=== PATIENT | female | born 1955 | race Two or more races ===

== ENCOUNTER → 2016-10-03 | Outpatient (CLI) | payer MEDICAID ==
[2016-10-03 17:57] LABS: HEMOGLOBIN 14.4 g/dL (12.2-16.2); LYMPH # 1.9 K/mm3 (0.7-4.5)
[2016-10-03 18:20] LABS: BUN 8 mg/dL (7-18)
[2016-10-03 18:23] LABS: GFR (ESTIMATED) 86 ML/MIN (59-)
[2016-10-05 08:47] LABS: Vitamin D, 25-Hydroxy 20.2 ng/mL (30.0-100.0)
[2016-10-05 12:36] LABS: HBsAg Screen Negative (Negative); Hep A Ab, IgM Negative (Negative); Hep B Core Ab, IgM Negative (Negative); Hep C Virus Ab <0.1 (0.0-0.9)
== END ==
LOC: LAB 15:36
PROVIDERS: Emergency Medicine
DX: R53.83 Other fatigue (principal); N39.0 Urinary tract infection, site not specified

== ENCOUNTER → 2016-11-14 | Outpatient (CLI) | payer MEDICAID ==
[2016-11-14 22:12] LABS: AMPHETAMINES/METAMPHETAMINES NEGATIVE ng/mL (<1000)
[2016-11-15 08:43] LABS: FSH 38.8 mIU/mL (.); LH 25.9 mIU/mL (.); Progesterone <0.1 ng/mL (.)
[2016-11-17 12:36] LABS: Estrogens, Total 42 pg/mL (.)
== END ==
LOC: LAB 13:36
PROVIDERS: Emergency Medicine
DX: R53.83 Other fatigue (principal)

== ENCOUNTER → 2016-11-21 | Outpatient (CLI) | payer MEDICAID ==
--- NOTE | 2016-11-21 11:25 | RADIOLOGY REPORT PS360 ---
BONE DENSITOMETRY(HIP:LT SPINE HISTORY: POST MENOPAUSAL ORDERING PHYSICIAN: Douglas Piper MD PATIENT AGE: 61 years COMPARISON: None FINDINGS: The BMD measured at the left femoral neck is 0.701 g/cm squared with a T score of -2.4. This is considered Osteopenic according to the World Health Organization criteria. Fracture risk is Moderate. Treatment is advised. IMPRESSION: Osteopenia. Recommend follow-up exam November 2018
--- NOTE | 2016-11-22 12:19 | RADIOLOGY REPORT PS360 ---
DIG MAMM-SCREEN MARISA W/CAD CAD Screening COMPARISON: None, patient had mammograms more than 10 years ago somewhere in [place] INDICATION: There is a history of breast cancer patient maternal aunt. TECHNIQUE: Standard CC and MLO images were obtained. R2 CAD reviewed. FINDINGS: Moderate fibroglandular densities are seen in the central portions of both breast and the findings are bilateral and symmetrical. There is no suspicious lesion and there are no suspicious microcalcifications. There is a tiny nodular density near the axillary tail the right breast likely a small intramammary node or fibroadenoma but since there are no previous mammograms for comparison suggest patient return for 6 month follow-up mammogram right breast There are fatty replaced nodes in both axilla. IMPRESSION: Fibrofatty parenchyma with tiny and likely benign-appearing nodular density right breast and recommend 6 month follow-up mammogram right breast BI-RADS CATEGORY: 3_Probably Benign-Short Term F/U RECOMMENDED FOLLOWUP: 6M 6MONTH FOLLOW-UP (A letter has been sent to the patient regarding results of the study.)
== END ==
LOC: RAD 09:00
DX: Z12.31 Encounter for screening mammogram for malignant neoplasm of breast (principal); Z78.0 Asymptomatic menopausal state; Z13.820 Encounter for screening for osteoporosis

== ENCOUNTER 2017-01-23 15:05 | Emergency (ER) | payer OTHER, MEDICAID ==
[~2017-01-23] VITALS: Ht 162.6 cm; Wt 63.5 kg
--- OUTSIDE RECORDS SUMMARY | 2017-01-23 15:17 | External Medical Summary Rpt | CCD ---
Author Author , SHIV CHANEY Address Unknown Phone [email or web address] Integrity Care Team Providers Care Bump Grader Operator Name Role Phone [facility] Unavailable Unavailable PRACTICE, [facility], [facility] Unavailable Unavailable [facility], [facility], Unavailable Unavailable [facility] Unavailable Un[facility] Unavailable [facility]available [facility], [facility] Unavailable Unavailable ASSIST, [facility] [facility] [employer] [facility] Unavailable Unavailable [facility], [facility] Purpose Continuity of Care Document - 10-17-2014 through 2016 Problems Code Diagnosis DOS Provider Status [id number] OTH SPEC 11-21-2016 [place] D/O BONE MEDICAL DENSITY IMAGING ASS STRUCTURE LT THIGH R928 OTH ABNORM 11-21-2016 [place] & MEDICAL INCONCLUSIV IMAGING ASS E FIND ON DX IMAG BREAST Z1231 ENCOUNTER 11-21-2016 [place] SCREENING MEDICAL MAMMO MALIG IMAGING ASS NEOPLASM BREAST M22777 ENCOUNTER 11-21-2016 [facility] SCREENING INC FOR OSTEOPOROSI S Z780 ASYMPTOMATI 11-21-2016 [place] C MEDICAL MENOPAUSAL IMAGING ASS STATE Z803 FAMILY 11-21-2016 [place] HISTORY OF MEDICAL MALIGNANT IMAGING ASS NEOPLASM OF BREAST R5383 OTHER 11-14-2016 [facility] H5213 MYOPIA 10-17-2016 [facility] L86273 UNSPECIFIED 10-17-2016 [facility] OF ASTIGMATISM [facility] BILATERAL H524 PRESBYOPIA 10-17-2016 [facility] N390 URINARY 10-03-2016 [facility] INFECTION INC SITE NOT SPECIFIED Z0100 ENCOUNTER 09-13-2016 [place] EXAM EYES & VISION W/O ABNORMAL FIND K3189 OTHER 03-09-2016 DISEASES OF [facility]OSPITALS AND DUODENUM M1288 OTHER 03-09-[address] [facility] SPECIFIC PHYSICIANS ARTHROPATHI ASSIST ES NEC OTHER SPEC SITE [id number] SPONDYLOSIS 03-09-2016 [facility] MYELOPATH/R HOSPITALS ADICULOPATH Y LUMB RGN H99441 SPONDYLOSIS 03-09-2016 [facility] MYELOPATH/[facility] HOSPITALS ADICULPATHY LS RGN M545 LOW BACK 03-09-2016 [facility] R300 DYSURIA 02-23-2016 [facility] M549 DORSALGIA 01-28-2016 [place] UNSPECIFIED [facility] PRACTICE M5432 SCIATICA 01-05-2016 [place] LEFT SIDE [employer] Mix [employer], [employer] Z8719 PERSONAL 01-05-2016 [place] HISTORY [employer], [employer] OTHER DISEASES DIGESTIVE SYSTEM R109 UNSPECIFIED 11-11-2015 [place] ABDOMINAL FAMILY PAIN PRACTICE [id number] STRAIN 08-28-2015 [facility] MUSCLE N EMERGENCY FASCIA & PHYS TENDON LOW BACK INITIAL G09NYCM EXPOSURE TO 08-28-2015 [facility] OTHER N EMERGENCY SPECIFIED PHYS FACTORS INITIAL ENC Y9389 ACTIVITY 08-28-2015 [facility] OTHER N EMERGENCY SPECIFIED PHYS J209 ACUTE 12-30-2014 [place] BRONCHITIS [facility] UNSPECIFIED PRACTICE 5990 URINARY 10-17-2014 [place] TRACT FAMILY INFECTION PRACTICE SITE NOT SPECIFIED Medications Na ND Rx Da Fi Fi Am Da Di Ph RX Ph St me C No te ll ll ou ys ag ar # ys at rm s nt no ma ic us Or Da si cy ia de te s n re d BU 00 10 12 60 30 00 MS Ac HI 59 -3 -0 .0 00 L- ti OP 13 1- 1- 00 07 MA ve IO 54 20 20 51 RT N 10 17 17 85 HC 5 45 PH L AR SR MA CY 15 0 #5 MG 91 TA BL ET 64 10 11 4. 28 00 [place] Ac T 38 -2 -2 00 00 L- ti D2 00 5- 4- 0 07 MA ve 73 20 20 50 RT 1. 70 17 17 58 25 6 71 PH AR MG MA CY (5 0, #5 00 91 0 UN IT ) AL 69 10 11 4. 28 00 WA Ac EN 09 -0 -1 00 00 L- ti DR 70 9- 0- 0 07 MA ve ON 22 20 20 51 RT AT 41 17 17 42 E 6 66 PH SO AR DI MA UM CY 70 #5 91 MG TA B CL 16 09 10 60 30 00 WA Ac ON 72 -1 -2 .0 00 L- ti AZ 90 8- 0- 00 04 MA ve EP 13 20 20 53 RT AM 61 17 17 16 6 05 PH 0. AR 5 MA MG CY TA #5 BL 91 ET BU 60 09 10 60 30 00 [facility] HI 50 -1 -2 .0 00 L- ti OP 50 8- 0- 00 07 MA ve IO 15 20 20 50 RT N 80 17 17 38 HC 1 08 PH L AR 75 MA CY MG #5 TA 91 BL ET 64 10 10 4. 28 00 [facility] T 38 -0 -2 00 00 L- ti D2 00 1- 0- 0 07 MA ve 73 20 20 50 RT 1. 70 17 17 58 25 6 71 PH AR MG MA CY (5 0, #5 00 91 0 UN IT ) ES 68 09 10 30 30 00 [facility] CI 64 -2 -2 .0 00 L- ti TA 50 5- 0- 00 07 MA ve LO 51 20 20 51 RT HI 95 17 17 18 AM 4 16 PH AR 10 MA CY MG #5 TA 91 BL ET 64 08 09 4. 28 00 [facility] T 38 -2 -2 00 00 L- ti D2 00 5- 2- 0 07 MA ve 73 20 20 50 RT 1. 70 17 17 58 25 6 71 PH AR MG MA CY (5 0, #5 00 91 0 UN IT ) ME 00 01 02 60 15 00 [facility] TH 14 -1 -1 .0 00 L- ti OC 31 9- 7- 00 07 MA ve AR 29 20 20 46 RT BA 20 17 17 54 MO 1 27 PH L AR 75 MA 0 CY MG #5 TA 91 BL ET FONTANA 65 01 01 20 10 00 [facility] LF 86 -0 -2 .0 00 L- ti AM 20 3- 7- 00 07 MA ve ET 42 20 20 46 RT HO 00 17 17 24 XA 5 07 PH ZO AR LE MA -T CY MP #5 DS 91 TA BL ET PH 51 01 01 15 5 00 [facility] EN 29 -0 -2 .0 00 L- ti AZ 30 3- 7- 00 07 MA ve OP 81 20 20 46 RT YR 10 17 17 24 ID 1 21 PH IN AR E MA 20 CY 0 MG #5 91 TA B VE 00 12 01 7. 7 00 [facility] NL 09 -2 -2 00 00 L- ti AF 37 2- 0- 0 07 MA ve AX 38 20 20 46 RT IN 45 16 17 01 E 6 59 PH HC AR L MA ER CY 37 #5 .5 91 MG CA P Results Labs Lab Lab Date Result Refere Interp Status Commen Order Detail nces retati t Range on Drugs identified in Urine by Screen method (11-14-2016 11:45) Ampheta NEGATIV <1000 complet mine 017 E ed [Presen 11:45 ce] in Urine by Screen method 11-Hydr NEGATIV <50 complet oxy 017 E ed delta-9 11:45 tetrahy drocann abinol [Presen ce] in Unspeci fied specime n Hemoglobin A1c in Blood (10-03-2016 10:30) Hemoglo 5.1 % 0.0% Normal complet bin A1c 017 - ed in 10:30 7.0% Blood Encounters Encounter Start End Date Code Location Performer Type Date [facility]
--- OUTSIDE RECORDS SUMMARY | 2017-01-23 15:17 | External Medical Summary Rpt | CCD ---
Author Author , SHIV CHANEY Address Unknown Phone [email or web address] Visual Effects Care Team Providers Care Formstone Fitter Name Role Phone [facility] Unavailable Unavailable PRACTICE, [facility] Un[facility] Unavailable INC, [facility] Unavailable Unavailable IM[facility]ING [facility], [facility], Unavailable Unavailable [facility] Unavailable Un[facility] Unavailable Unavailable HOSPITALS, [facility] Unavailable Unavailable ASSIST, [facility] [employer] [facility] Unavailable Unavailable [facility], [facility] Purpose Continuity of Care Document - 10-17-2014 through 2016 Problems Code Diagnosis DOS Provider Status [id number] OTH SPEC 11-21-2016 [place] D/O BONE MEDICAL DENSITY IMAGING ASS STRUCTURE LT THIGH R928 OTH ABNORM 11-21-2016 [place] & MEDICAL INCONCLUSIV IMAGING ASS E FIND ON DX IMAG BREAST Z1231 ENCOUNTER 11-21-2016 [place] SCREENING MEDICAL MAMMO MALIG IMAGING ASS NEOPLASM BREAST U07433 ENCOUNTER 11-21-2016 [facility] SCREENING INC FOR OSTEOPOROSI S Z780 ASYMPTOMATI 11-21-2016 [place] C MEDICAL MENOPAUSAL IMAGING ASS STATE Z803 FAMILY 11-21-2016 [place] HISTORY OF MEDICAL MALIGNANT IMAGING ASS NEOPLASM OF BREAST R5383 OTHER 11-14-2016 [facility] H5213 MYOPIA 10-17-2016 [facility] P25423 UNSPECIFIED 10-17-2016 [facility] ASTIGMATISM [facility] BILATERAL H524 PRESBYOPIA 10-17-2016 [facility] N390 URINARY 10-03-2016 [facility] INFECTION INC SITE NOT SPECIFIED Z0100 ENCOUNTER 09-13-2016 [facility] EXAM EYES & VISION W/O ABNORMAL FIND K3189 OTHER 03-09-2016 DISEASES OF [facility]OSPIT[facility] AND DUODENUM M1288 OTHER 03-09-2016 [facility] SPECIFIC PHYSICIANS ARTHROPATHI ASSIST ES NEC OTHER SPEC SITE F74765 SPONDYLOSIS 03-09-2016 [facility] MYELOPATH/[facility] HOSPITALS ADICULOPATH Y LUMB RGN P06830 SPONDYLOSIS 03-09-2016 [facility] MYELOPATH[facility] HOSPITALS ADICULPATHY LS RGN M545 LOW BACK 03-09-2016 [facility] R300 DYSURIA 02-23-2016 [facility] M549 DORSALGIA 01-28-2016 [place] UNSPECIFIED [facility] M5432 SCIATICA 01-05-2016 [place] LEFT SIDE [employer], Queralt Z8719 PERSONAL 01-05-2016 [place] HISTORY [employer], Queralt OTHER DISEASES DIGESTIVE SYSTEM R109 UNSPECIFIED 11-11-2015 [place] ABDOMINAL FAMILY PAIN PRACTICE L54743Q STRAIN 08-28-2015 [facility] MUSCLE N EMERGENCY FASCIA & PHYS TENDON LOW BACK INITIAL [id number] EXPOSURE TO 08-28-2015 [facility] OTHER N EMERGENCY SPECIFIED PHYS FACTORS INITIAL ENC Y9389 ACTIVITY 08-28-2015 [facility] OTHER N EMERGENCY SPECIFIED PHYS J209 ACUTE 12-30-2014 [place] BRONCHITIS [facility] UNSPECIFIED PRACTICE 5990 URINARY 10-17-2014 [place] TRACT FAMILY INFECTION PRACTICE SITE NOT SPECIFIED Medications Na ND Rx Da Fi Fi Am Da Di Ph RX Ph St me C No te ll ll ou ys ag ar # ys at rm s nt no ma ic us Or Da si cy ia de te s n re d BU 00 10 12 60 30 00 [place] Ac UT 59 -3 -0 .0 00 L- ti [...] BU 60 09 10 60 30 00 [facility] UT 50 -1 -2 .0 00 L- ti OP 50 8- 0- 00 07 MA ve IO 15 20 20 50 RT N 80 17 17 38 HC 1 08 PH L AR 75 MA CY MG #5 TA 91 BL ET 64 10 10 4. 28 00 [facility] T 38 -0 -2 00 00 L- ti D2 00 1- 0- 0 07 MA ve 73 20 20 50 RT 1. 70 17 17 58 25 6 71 PH AR MG MA CY (5 0, #5 00 91 0 UN IT ) ES 68 09 10 30 30 00 [facility] CI 64 -2 -2 .0 00 L- ti TA 50 5- 0- 00 07 MA ve LO 51 20 20 51 RT UT 95 17 17 18 AM 4 16 PH AR 10 MA CY MG #5 TA 91 BL ET 64 08 09 4. 28 00 [facility] T 38 -2 -2 00 00 L- ti D2 00 5- 2- 0 07 MA ve 73 20 20 50 RT 1. 70 17 17 58 25 6 71 PH AR MG MA CY (5 0, #5 00 91 0 UN IT ) ME 00 01 02 60 15 00 [facility] TH 14 -1 -1 .0 00 L- ti OC 31 9- 7- 00 07 MA ve AR 29 20 20 46 RT BA 20 17 17 54 MO 1 27 PH L AR 75 MA 0 CY MG #5 TA 91 BL ET FONTANA 65 01 01 20 10 00 [facility] LF 86 -0 -2 .0 00 L- ti AM 20 3- 7- 00 07 MA ve ET 42 20 20 46 RT HO 00 17 17 24 XA 5 07 PH ZO AR LE MA -T CY MP #5 DS 91 TA BL ET PH 51 01 01 15 5 00 [facility] EN 29 -0 -2 .0 00 L- ti AZ 30 3- 7- 00 07 MA ve OP 81 20 20 46 RT YR 10 17 17 24 ID 1 21 PH IN AR E MA 20 CY 0 MG #5 91 TA B VE 00 12 01 7. 7 00 [facility] NL 09 -2 -2 00 00 L- [...] End Date Code Location Performer Type Date [facility] 7 [facility]
--- OUTSIDE RECORDS SUMMARY | 2017-01-23 15:18 | External Medical Summary Rpt ---
Author Author [facility]IV Weems, JOHNERNESTINA Production Organization [facility] [employer] Address Unknown Phone Unavailable Results Drugs identified in Urine by Screen method Observa Value Referen Units Interpr Notes Date tion ce etation Range Positive urine drug screen samples are stored for 7 days. Contact the Lab if confirmation of positives is needed. Ampheta NEGATIV <1000 ng/mL No No Sep 25 mine E informa informa 2017 [Presen tion in tion in 11:45 ce] in source source AM Urine data data by Screen method Barbitura <200 ng/mL No No Sep 25 sonia informati informati 2017 [Mass/vol on in on in 11:45 AM ume] in source source Urine by data data Screen method Benzodiaz 200 ng/mL ng/mL No No Sep 25 epines informati informati 2017 [Mass/vol on in on in 11:45 AM ume] in source source Serum or data data Plasma by Screen method Cocaine <300 ng/g No No Sep 25 [Mass/vol informati informati 2017 ume] in on in on in 11:45 AM Unspecifi source source ed data data specimen Methadone <300 ng/mL No No Sep 25 informati informati 2017 [Mass/vol on in on in 11:45 AM ume] in source source Unspecifi data data ed specimen Opiates <300 ng/mL No No Sep 25 [Mass/vol informati informati 2017 ume] in on in on in 11:45 AM Unspecifi source source ed data data specimen Phencycli <25 ng/mL No No Sep 25 dine informati informati 2017 [Mass/vol on in on in 11:45 AM ume] in source source Unspecifi data data ed specimen 11-Hydr NEGATIV <50 ng/mL No No Sep 25 oxy E informa informa 2017 delta-9 tion in tion in 11:45 source source AM tetrahy data data drocann abinol [Presen ce] in Unspeci fied specime n Hemoglobin A1c in Blood Observa Value Referen Units Interpr Notes Date tion ce etation Range Hemoglo 5.1 0.0 - % Normal < 6% Oct 03 bin A1c 7.0 NON-SHONA 2017 in BETIC 10:30 Blood LEVEL< AM 7% CONTROL LED DIABETI C LEVEL> 8% POORLY CONTROL LED DIABETI C LEVEL Comprehensive metabolic 2000 panel in Serum or Plasma Observa Value Referen Units Interpr Notes Date tion ce etation Range Albumin/G 1.1 - 1.8 No Normal No Oct 03 lobulin informati informati 2016 [Mass on in on in 10:30 AM ratio] in source source Serum or data data Plasma Albumin 3.4 - 5.0 gm/dL Normal No Oct 03 [Mass/vol informati 2016 ume] in on in 10:30 AM Serum or source Plasma data Alkaline 46 - 116 U/L Normal No Oct 03 phosphata informati 2016 se on in 10:30 AM [Enzymati source c data activity/ volume] in Serum or Plasma Bilirubin 0.2 - 1.0 mg/dL Normal No Oct 03 .total informati 2016 [Mass/vol on in 10:30 AM ume] in source Serum or data Plasma Urea 7 - 18 mg/dL Normal No Oct 03 nitrogen informati 2016 [Mass/vol on in 10:30 AM ume] in source Serum or data Plasma Calcium 8.5 - mg/dL Normal No Oct 03 [Mass/vol 10.1 informati 2016 ume] in on in 10:30 AM Serum or source Plasma data Chloride 98 - 107 mmoL/L Normal No Oct 03 [Moles/vo informati 2016 lume] in on in 10:30 AM Serum or source Plasma data Carbon 21.0 - mmoL/L Normal No Oct 03 dioxide, 32.0 informati 2016 total on in 10:30 AM [Moles/vo source lume] in data Serum or Plasma Creatinin 0.55 - mg/dL Normal No Oct 03 e 1.02 informati 2016 [Mass/vol on in 10:30 AM ume] in source Serum or data Plasma Estimated 59- ML/MIN No REFERENCE Oct 03 informati RANGE: 2017 glomerula on in >60 10:30 AM r source ML/MIN/1. filtratio data 73 SQUARE n rate METERSIf (GF this patient is -A merican, then multiply theresult by 1.210. Globulin 1.3 - 3.2 gm/dL Normal No Sep 14 [Mass/vol informati 2016 ume] in on in 10:30 AM Serum source data Glucose 74 - 106 mg/dL Normal No Sep 14 [Mass/vol informati 2016 ume] in on in 10:30 AM Serum or source Plasma data Potassium 3.5 - 5.1 mmoL/L Normal No Oct 03 inform2016 [Moles/vo on in 10:30 AM lume] in source Serum or data Plasma Sodium 136 - 145 mmoL/L Normal No Oct 03 [Moles/vo informati 2016 lume] in on in 10:30 AM Serum or source Plasma data Aspartate 15 - 37 U/L Normal No Oct [id number] aminotran on in 10:30 AM sferase source [Enzymati data c activity/ volume] in Serum or Plasma Alanine 12 - 78 U/L Normal No Oct 03 aminotran 2016 sferase on in 10:30 AM [Enzymati source c data activity/ volume] in Serum or Plasma Protein 6.4 - 8.2 gm/dL Normal No Oct 03 [Mass/vol informati 2016 ume] in on in 10:30 AM Serum or source Plasma data Lipid 1996 panel in Serum or Plasma Observa Value Referen Units Interpr Notes Date tion ce etation Range Cholester < 200 mg/dL No No Sep 14 ol informati 2016 [Moles/vo on in on in 10:30 AM lume] in source source Unspecifi data data ed specimen Cholester 40 - 60 MG/DL High No Oct 03 ol in HDL 2016 on in 10:30 AM [Mass/vol source ume] in data Serum or Plasma Cholester 0 - 130 mg/dL Normal No Oct 03 ol in LDL 2016 on in 10:30 AM [Mass/vol source ume] in data Serum or Plasma by calculati on Triglycer 30 - 200 mg/dL Normal No Oct 03 chirag 2016 [Moles/vo on in 10:30 AM lume] in source Serum or data Plasma Cholester 0 - 40 No Normal No Sep 14 ol in informati inform 2017 VLDL on in on in 10:30 AM [Mass/vol source source ume] in data data Serum or Plasma Thyroxine (T4) [Mass/volume] in Serum or Plasma Observa Value Referen Units Interpr Notes Date tion ce etation Range Thyroxine 4.7 - ug/dl Normal No Sep 14 (T4) 13.3 2016 [Mass/vol on in 10:30 AM ume] in source Serum or data Plasma Thyrotropin [Units/volume] in Serum or Plasma Observa Value Referen Units Interpr Notes Date ti ce etation Range Thyrotrop 0.358 - uIU/ml Normal No Sep 14 in 3.740 inform2016 [Units/vo on in 10:30 AM lume] in source Serum or data Plasma CBC W Auto Differential panel in Blood Observa Value Referen Units Interpr Notes Date ti ce etation Range Basophils 0 - 0.2 K/MM3 Normal No Sep 14 2016 [#/volume on in 10:30 AM ] in source Blood by data Automated count Basophils 0.1 - 2.0 % Normal No Sep 14 /100 inform 2017 leukocyte on in 10:30 AM s in source Blood by data Automated count Eosinophi 0.0 - 0.4 K/mm3 Normal No Sep 14 ls 2016 [#/volume on in 10:30 AM ] in source Blood by data Automated count Eosinophi 0.1 - % Normal No Sep 14 ls/100 12.0 inform2016 leukocyte on in 10:30 AM s in source Blood by data Automated count Granulocy 1.8 - 7.8 K/mm3 Normal No Sep 14 sonia 2016 [#/volume on in 10:30 AM ] in source Blood by data Automated count Granulocy 37.0 - % Normal No Sep 14 sonia/100 80.0 2016 leukocyte on in 10:30 AM s in source Blood by data Automated count Hematocri 37.0 - % Normal No Oct 03 t [Volume 47.0 ati 2016 on in 10:30 AM Fraction] source of Blood data Hemoglobi 12.2 - g/dL Normal No Sep 14 n 16.2 2016 [Mass/vol on in 10:30 AM ume] in source Blood data Lymphocyt 0.7 - 4.5 K/mm3 Normal No Sep 14 es 2016 [#/volume on in 10:30 AM ] in source Unspecifi data ed specimen by Automated count Lymphocyt 10 - 50.0 % Normal No Sep 14 es 2016 [#/volume on in 10:30 AM ] in source Unspecifi data ed specimen by Automated count Erythrocy 27 - 31.2 pg High No Oct 03 te mean 2016 corpuscul on in 10:30 AM ar source hemoglobi data n [Entitic mass] Erythrocy 31.8 - g/dl Normal Oct 03 te mean 35.4 2016 corpuscul on in 10:30 AM ar source hemoglobi data n concentra tion [Mass/vol ume] by Automated count Erythrocy 82.2 - fl High No Oct 03 te mean 97.8 2016 corpuscul on in 10:30 AM ar volume source [Entitic data volume] by Automated count Monocytes 0.1 - 1.0 K/mm3 Normal No Oct 03 inform2016 [#/volume on in 10:30 AM ] in source Blood by data Automated count Monocytes 1.7 - 9.3 % Normal No Oct 03 /100 2016 leukocyte on in 10:30 AM s in source Blood by data Automated count Platelet 7.4 - fl Normal Oct 03 mean 10.4 inform2016 volume on in 10:30 AM [Entitic source volume] data in Blood by Automated count Platelets 142 - 424 K/mm3 Normal No Oct [id number] [#/volume on in 10:30 AM ] in source Blood data Erythrocy 4.2 - 5.4 M/mm3 Normal No Oct 03 sonia inform2016 [#/volume on in 10:30 AM ] in source Amniotic data fluid Erythrocy 11.5 - % Normal Oct 03 te 17.5 2016 distribut on in 10:30 AM ion width source [Entitic data volume] by Automated count Leukocyte 4.8 - K/MM3 Normal No Oct 03 s 10.8 informati 2016 [#/volume on in 10:30 AM ] in source Blood data
--- OUTSIDE RECORDS SUMMARY | 2017-01-23 15:18 | External Medical Summary Rpt | CCD ---
Author Author [facility] Organization [facility] Address Unknown Phone Unavailable Purpose Continuity of Care Document - through 2016
--- OUTSIDE RECORDS SUMMARY | 2017-01-23 15:18 | External Medical Summary Rpt | CCD ---
Demographics Preferred Language Indonesian Marital Status Unknown Mandaeism Affiliation Unknown Race Unknown Ethnic Group Unknown Author Author , SHIV CHANEY Address Unknown Phone Immunization No patient found.
--- OUTSIDE RECORDS SUMMARY | 2017-01-23 15:18 | External Medical Summary Rpt | CCD ---
Demographics Preferred Language [place] Island[place] Marital Status Unknown Synagogue Affiliation Unknown Race Unknown Ethnic Group Unknown Author Author , SHIV CHANEY Address Unknown Phone Immunization No patient found.
--- NOTE | 2017-01-23 16:09 | RADIOLOGY REPORT PS360 ---
WRIST-3 VIEWS-RT HISTORY: Pain following injury FALL ORDERING PHYSICIAN: LILIANE DALTON APRN PATIENT AGE: 61 years COMPARISON: None FINDINGS: No fracture or dislocation. No lytic or blastic change. There is normal mineralization.. The joint spaces are well-preserved. No significant degenerative/arthritic changes. No erosive changes evident.. IMPRESSION: Negative wrist
--- NOTE | 2017-01-23 16:29 | RADIOLOGY REPORT PS360 ---
[id number] VIEWS HISTORY: Posttraumatic pain FALL ORDERING PHYSICIAN: LILIANE DALTON APRN PATIENT AGE: 61 years COMPARISON: None FINDINGS: No fracture or dislocation. No lytic or blastic change. There is normal mineralization. The joint spaces are well-preserved. No significant degenerative/arthritic changes. No erosive changes evident. IMPRESSION: Negative, no acute finding
[2017-01-23] MEDS ORDERED: BUPROPION HYDR150 M1 PO (16:39)
[2017-01-23] MEDS ORDERED: VITAMIN D50000 I1 PO (16:40)
[2017-01-23] MEDS ORDERED: ALENDRONATE SOD70 M1 PO (16:40)
[2017-01-23] MEDS ORDERED: ESCITALOPRAM10 M1 PO (16:41)
--- NOTE | 2017-01-23 17:06 | [facility]gent Treatment Center Report ---
History of Present Issue Date/Time Seen by Provider 01/23/17 1701 Visit Reason Pt arrived:Walked Presenting Problem:PT WAS AT WORK AND TRIPPED AND FELL OVER A MAT. C/O RIGHT SHOULDER/WRIST PAIN Location if Accident: Onset of symptoms date/time:/ or onset unknown for:MEDICAL HX UNKNOWN Have you (or family members/close friends) recently traveled outside the [place]? N If Yes, where/when: Have you had exposure to infectious disease within the past month? TB? Other? Specify: rt handed, c/o rt shoulder and wrist pain, tripped fell at work today around 11am. Tried catching self w/ right hand. Mild pain rt lateral shoulder but severe rt wrist. Tried returning to work "and working through it but pain only got worse". Unchanged w/ tylenol. Hasn't taken or tried anything else. "I came straight here" Source patient ALLERGIES Coded Allergies: Penicillins (01/23/17) Home Medications Reported Medications Bupropion Hcl (Bupropion HCl Sr) 150 MG PO BID #60 Alendronate Sodium 70 MG PO WEEKLY #4 ERGOCALCIFEROL (VITAMIN D2) (Vitamin D2) 50,000 IUNITS PO DAILY #4 Escitalopram Oxalate 10 MG PO DAILY #30 History Medical History General CAD? No Angina: No MA: No Hypertension? No Hyperlipidemia? No CHF? No DVT? No PE? No COPD? No Asthma? No Anemia? No GERD? No Gastric ulcers? No GI Bleed? No Hernia? No Thyroid Problems? No Hypothyroidism? No CVA? No Seizures? No Diabetes? No Renal Insuffiency? No UTI? No Stones? No BPH? No GB Disease: No Nephritic Syndrome? No Asplenia? No Hepatitis? No Sickle Cell Disease? No Arthritis? No Migraines? No Cataracts? No Glaucoma? No MRSA? No HIV? No TB? No Anxiety? Yes Depression? Yes Cancer? No More? Yes Additional hx: OSTEOPOROSIS Immunization HX DT/Tetanus Unknown Surgical Hx Previous Surgery?N Social History Smoking Hx Smoker: Current Every Day Smoker Tobacco: Yes Type Cigarettes Packs/day 1 1/2 - 2 Packs Alcohol Alcohol: No Review of Systems All Other Systems Reviewed and Negative (as appropriate for CC) Musculoskeletal see HPI, denies other (head injury, pain elsewhere) Skin denies change in color, denies lesions, denies lumps Psychiatric/Neurological denies numbness, denies tingling Physical Exam Vital Signs Vital Signs Date Time Temp Pulse Resp B/P Pulse O2 O2 Flow FiO2 Ox Delivery Rate 01/23 1804 98.1 59 18 134/68 98 01/23 1739 18 01/23 1637 98.1 59 16 134/68 98 01/23 1509 98.1 59 16 134/68 98 General Appearance mild distress (guarding rt UE) Respiratory Status No: respiratory distress. Cardiovascular no peripheral edema Peripheral Pulses Pulses normal Yes (radial) Extremities normal inspection (rt UE), severe medial/ulna wrist ttp, refusing wrist ROM, refusing rt shoulder ROM "because my wrist hurts so bad", mild ttp right posterior shoulder; Neurologic alert, no motor/sensory deficits Skin intact, normal color, warm/dry Medical Decision Making LABS/Meds/Orders Pt receiving controlled substance in ED? No Results/Orders Orders Procedure Date/time Status STABILIZE JOINT 01/23 1722 Active XRAY/CT/US XRAY/CT/US XRAY shoulder (right), wrist (right) XR interpretation by reviewed by me (after exam), discussed w/radiologist ( read report) Xray Results no acute findings Progress [facility] Progress Notes Date 01/23/17 Time 1750 Comment Pain improved w/ ice, toradol and splinting. "I am just ready to go home". Rvwd POC and restrictions. Agrees to call ortho in morning. Procedures Orthopedic/Inj/Splint Ortho Proc/Injections/Splints Risks/benefits discussed with pt/guardian? Yes Hand-Made Type orthoglass Splint volar (short arm) Pre-Proc Neuro Vasc Exam normal Post-Proc Neuro Vasc Exam normal, unchanged from pre-exam Departure Departure Time of Disposition 1758 Disposition DC Home or Self Care(routine) Clinical Impression Primary Impression: Contusion of right shoulder Qualifiers: Encounter type: initial encounter Qualified Code: S40.011A - Contusion of right shoulder, initial encounter Secondary Impressions: Right wrist sprain Qualifiers: Encounter type: initial encounter Qualified Code: S63.501A - Unspecified sprain of right wrist, initial encounter Condition STABLE Referrals Jayme Funez MD Call first thing in the morning. Report seen in [facility] this afternoon. xray read as negative by Dr. Renee but wrist exam concerning for hidden fracture. Orthoglass splint and told to call in the morning for follow up appointment. Patient Instructions DI for Contusion, DI for Wrist Sprain, How To Perform RICE (Rest, Ice, Compress, Elevate), How to Take Care of Your Splint Additional Instructions * sling right UE * Rest * ice 15-20 mins 3-4 times a day * splint until ortho follow up. Be sure not too tight by monitoring fingers as we discussed. * Elevate as discussed as much as possible to help reduce swelling and therefore , pain * Ibuprofen every 6 hours as needed for pain and inflammation. If you need something more, you can take tylenol every 4 hours as needed as long as your primary care provider has told you it is ok to take both. Discharge Counseling Counseled pt/family regarding diagnosis, test results, medications/RX, home care, follow up needs at [id number]
[2017-01-23 18:04] VITALS: BP 134/68
== END 2017-01-23 18:04 | disposition home or self-care (01) ==
LOC: ER 15:05 → UTC 15:15
PROC: 2W3CX1Z Immobilization of Right Lower Arm using Splint (ICD-10-PCS; principal; 2017-01-23)
DX: S40.011A Contusion of right shoulder, initial encounter (principal); S63.501A Unspecified sprain of right wrist, initial encounter; F17.210 Nicotine dependence, cigarettes, uncomplicated; F41.8 Other specified anxiety disorders; Z88.0 Allergy status to penicillin; W01.0XXA Fall on same level from slipping, tripping and stumbling without subsequent striking against object, initial encounter; Y92.69 Other specified industrial and construction area as the place of occurrence of the external cause; Y99.0 Civilian activity done for income or pay